=== PATIENT | female | born 1975 | race Caucasian/White ===

== ENCOUNTER 2021-11-28 10:15 | Inpatient (IN) | payer OTHER ==
[2021-11-24 11:24] VITALS: BMI 38.8
[2021-11-28] MEDS ORDERED: BUPIVACAINE LIPOSOME/PF (EXPAREL) 266 MG/20 ML VIAL ONE (12:15)
[2021-11-28] MEDS ORDERED: BUPIVACAINE HCL 50 ML ONE (12:16)
[2021-11-28] MEDS ORDERED: BUPIVACAINE HCL/PF 2.5 MG/ML - 30 ML VIAL IJ ONE (12:16)
[2021-11-28] MEDS ORDERED: MIDAZOLAM HCL 2 MG/2 ML SINGLE DOSE VIAL ONE ×2 (12:16→15:44)
[2021-11-28] MEDS ORDERED: VANCOMYCIN 1,000 MG VIAL (RESTRICTED TO ID ONLY) ONE (12:27)
[2021-11-28] MEDS ORDERED: PROPOFOL 20 ML ONE ×5 (13:50→14:39)
[2021-11-28] MEDS ORDERED: BUPIVICAINE 0.25%/MORPH PF/KETOROLAC - 51ML DISP.SYRINGE IA ONE ×2 (14:39→15:34)
[2021-11-28] MEDS ORDERED: HYDROmorphone HCL/PF 1 MG/ML VIAL ONE (15:55)
[2021-11-28] MEDS ORDERED: MAG HYDROX/AL HYDROX/SIMETH 30 ML UNIT-DOSE CUP PO PRN (16:04)
[2021-11-28] MEDS ORDERED: LACTATED RINGERS SOLUTION 1,000 ML IV SCH (16:15)
[2021-11-28] MEDS ORDERED: HYDROmorphone HCL/PF 1 MG/ML VIAL IVPUSH PRN (16:22)
[2021-11-28] MEDS ORDERED: ACETAMINOPHEN 1000 MG/100 ML BAG IVPB ONE ×2 (16:23→16:40)
[2021-11-28] MEDS ORDERED: oxyCODONE HCL 5 MG TABLET PO PRN (16:23)
[2021-11-28] MEDS ORDERED: ACETAMINOPHEN INJECTION 100 ML IVPB ONE (16:41)
[2021-11-28] MEDS: ONDANSETRON 4 MG/2 ML VIAL IVPUSH PRN (16:55)
[2021-11-28] MEDS ORDERED: ONDANSETRON 4 MG/2 ML VIAL ONE (16:59)
[2021-11-28] MEDS ORDERED: DEXTROSE 5%-WATER - 50 ML IVPB ONE (21:22)
[2021-11-28] MEDS ORDERED: ceFAZolin SODIUM 1 GM VIAL ONE (21:22)
[2021-11-28] MEDS: oxyCODONE HCL 10 MG SUSTAINED ACTING TABLET PO SCH (21:30)
[2021-11-28] MEDS: CEFAZOLIN 2 GM in DEXTROSE 5%-WATER - 50 ML IVPB SCH (21:31)
[2021-11-28] MEDS: SENNOSIDES/DOCUSATE COMBO (SENNA PLUS) TABLET (UD) PO SCH (21:31)
[2021-11-29] MEDS: oxyCODONE HCL 5 MG TABLET PO PRN ×2 (02:56→19:49)
[2021-11-29] MEDS ORDERED: ceFAZolin SODIUM 1 GM VIAL ONE ×2 (03:00→12:24)
[2021-11-29] MEDS ORDERED: DEXTROSE 5%-WATER - 50 ML IVPB ONE ×2 (03:00→12:24)
[2021-11-29] MEDS: CEFAZOLIN 2 GM in DEXTROSE 5%-WATER - 50 ML IVPB SCH ×3 (04:58→12:27)
[2021-11-29] MEDS: ONDANSETRON 4 MG/2 ML VIAL IVPUSH PRN (07:57)
[2021-11-29 08:05] LABS: CALCIUM 8.5 mg/dl (8.5-10); CREATININE 0.8 mg/dl (0.55-1.3)
[2021-11-29] MEDS: GABAPENTIN 300 MG CAPSULE PO SCH ×3 (08:38→21:40)
[2021-11-29] MEDS: ACETAMINOPHEN 500 MG TABLET (FP) PO SCH ×3 (08:51→23:54)
[2021-11-29] MEDS: SENNOSIDES/DOCUSATE COMBO (SENNA PLUS) TABLET (UD) PO SCH ×2 (09:48→21:41)
[2021-11-29] MEDS: oxyCODONE HCL 10 MG SUSTAINED ACTING TABLET PO SCH ×2 (09:48→21:40)
[2021-11-29] MEDS: MULTIVITAMINS (DAILY MVI) TABLET (FP) PO SCH (09:48)
[2021-11-29] MEDS: PANTOPRAZOLE 40 MG TABLET PO SCH (09:48)
[2021-11-29] MEDS: ASPIRIN 325 MG TABLET PO SCH ×2 (09:48→21:40)
[2021-11-29] MEDS: LORATADINE 10 MG TABLET PO SCH (09:52)
[2021-11-29 10:04] LABS: HEMATOCRIT 36.6 % (32.4-45.2); HEMOGLOBIN 12.4 GM/dL (10.7-15.3); MCH 31.1 pg (25.7-33.7); MCHC 33.8 g/dl (32.0-36.0); MEAN CELL VOLUME 92.1 fl (80-96); MEAN PLT VOLUME 8.6 fl (7.5-11.1); PLATELET COUNT 248 10^3/uL (134-434); RBC 3.98 M/mm3 (3.60-5.2); RDW 13.4 % (11.6-15.6); WHITE BLOOD COUNT 9.8 K/mm3 (4.0-10.0)
[2021-11-30] MEDS: ACETAMINOPHEN 500 MG TABLET (FP) PO SCH ×2 (08:28→16:28)
[2021-11-30] MEDS: PANTOPRAZOLE 40 MG TABLET PO SCH (09:24)
[2021-11-30] MEDS: oxyCODONE HCL 10 MG SUSTAINED ACTING TABLET PO SCH (09:24)
[2021-11-30] MEDS: SENNOSIDES/DOCUSATE COMBO (SENNA PLUS) TABLET (UD) PO SCH (09:24)
[2021-11-30] MEDS: ASPIRIN 325 MG TABLET PO SCH (09:24)
[2021-11-30] MEDS: MULTIVITAMINS (DAILY MVI) TABLET (FP) PO SCH (09:24)
[2021-11-30] MEDS: GABAPENTIN 300 MG CAPSULE PO SCH (09:24)
[2021-11-30] MEDS: LORATADINE 10 MG TABLET PO SCH (09:27)
[2021-11-30 13:51] VITALS: BP 100/49; PULSE 92; TEMP 99.6
[2021-11-30 15:28] LABS: HEMATOCRIT 34.9 % (32.4-45.2); HEMOGLOBIN 11.8 GM/dL (10.7-15.3); MCH 31.2 pg (25.7-33.7); MCHC 33.9 g/dl (32.0-36.0); MEAN CELL VOLUME 92.1 fl (80-96); MEAN PLT VOLUME 8.7 fl (7.5-11.1); PLATELET COUNT 220 10^3/uL (134-434); RBC 3.79 M/mm3 (3.60-5.2); RDW 13.5 % (11.6-15.6); WHITE BLOOD COUNT 9.5 K/mm3 (4.0-10.0)
== END 2021-11-30 17:12 | disposition home or self-care (01) | DRG 470 ==
LOC: FM/S 10:38
PROVIDERS: ADMIT Orthopaedic Surgery Sports Medicine; ATTEND Nurse Practitioner Acute Care
PROC: 0SRD0JZ Replacement of Left Knee Joint with Synthetic Substitute, Open Approach (ICD-10-PCS; principal; 2021-11-28 13:42)
DX: M17.12 Unilateral primary osteoarthritis, left knee (principal); F41.8 Other specified anxiety disorders; M79.7 Fibromyalgia
CPT/HCPCS: 36415; 73560-TC-LT-FY; 80048; 84703; 85027; 94760; 97010-GP; 97116-GP; 97162-GP

== ENCOUNTER 2022-11-20 08:57 | Inpatient (IN) | payer OTHER ==
[2022-11-13 11:34] VITALS: BMI 37.5
[2022-11-20] MEDS ORDERED: MIDAZOLAM HCL 2 MG/2 ML SINGLE DOSE VIAL ONE ×5 (09:22→12:53)
[2022-11-20] MEDS ORDERED: PROPOFOL 40 ML ONE (09:22)
[2022-11-20] MEDS ORDERED: BUPIVACAINE LIPOSOME/PF (EXPAREL) 266 MG/20 ML VIAL ONE (09:24)
[2022-11-20] MEDS ORDERED: BUPIVACAINE HCL/PF 0.5% (5MG/ML) 10 ML VIAL ONE (09:24)
[2022-11-20] MEDS ORDERED: VANCOMYCIN 1,000 MG VIAL (RESTRICTED TO ID ONLY) ONE ×2 (10:47→11:13)
[2022-11-20] MEDS ORDERED: CEFAZOLIN 2 GM in DEXTROSE 5%-WATER - 50 ML IVPB ONE (11:00)
[2022-11-20] MEDS ORDERED: VANCOMYCIN 1 GM in D5W (PRE-DOCKED) 1,000 MG/250 ML IVPB ONE ×2 (11:00→22:00)
[2022-11-20] MEDS ORDERED: ONDANSETRON 4 MG/2 ML VIAL ONE (11:13)
[2022-11-20] MEDS ORDERED: DEXAMETHASONE SOD PHOSPHATE 4 MG/1 ML VIAL ONE (11:13)
[2022-11-20] MEDS ORDERED: ceFAZolin SODIUM 1 GM VIAL ONE (11:13)
[2022-11-20] MEDS ORDERED: TRANEXAMIC ACID 1000 MG/10 ML VIAL ONE (11:13)
[2022-11-20] MEDS ORDERED: PROPOFOL 60 ML ONE (11:44)
[2022-11-20] MEDS ORDERED: TRANEXAMIC ACID 1000 MG/10 ML VIAL IVPUSH ONE (12:00)
[2022-11-20] MEDS ORDERED: ePHEDrine SULFATE 50 MG/1 ML AMPULE ONE (12:11)
[2022-11-20] MEDS ORDERED: BUPIVICAINE 0.25%/MORPH PF/KETOROLAC - 51ML DISP.SYRINGE IA ONE (12:37)
[2022-11-20] MEDS ORDERED: PROPOFOL 20 ML ONE ×2 (12:56→13:14)
[2022-11-20] MEDS ORDERED: ACETAMINOPHEN 1000 MG/100 ML BAG IVPB ONE (14:11)
[2022-11-20] MEDS ORDERED: ONDANSETRON 4 MG/2 ML VIAL IVPUSH PRN ×2 (14:11→14:12)
[2022-11-20] MEDS ORDERED: MAG HYDROX/AL HYDROX/SIMETH 30 ML UNIT-DOSE CUP PO PRN (14:12)
[2022-11-20] MEDS ORDERED: LACTATED RINGERS SOLUTION 1,000 ML IV SCH ×2 (14:15)
[2022-11-20] MEDS: KETOROLAC TROMETHAMINE 30 MG/1 ML VIAL IVPUSH SCH ×2 (16:28→21:46)
[2022-11-20] MEDS: ACETAMINOPHEN 500 MG TABLET (FP) PO SCH (20:45)
[2022-11-20] MEDS: CEFAZOLIN SODIUM 2 GM in DEXTROSE 5%-WATER 100 ML IVPB SCH (21:44)
[2022-11-20] MEDS: GABAPENTIN 300 MG CAPSULE PO SCH (21:45)
[2022-11-20] MEDS: SENNOSIDES/DOCUSATE COMBO (SENNA PLUS) TABLET (UD) PO SCH (21:45)
[2022-11-21] MEDS: oxyCODONE HCL 5 MG TABLET PO PRN ×6 (01:51→22:04)
[2022-11-21] MEDS: ACETAMINOPHEN 500 MG TABLET (FP) PO SCH ×4 (02:13→22:18)
[2022-11-21] MEDS: CEFAZOLIN SODIUM 2 GM in DEXTROSE 5%-WATER 100 ML IVPB SCH ×2 (03:42→10:56)
[2022-11-21 08:26] LABS: HEMATOCRIT 34.5 % (32.4-45.2); HEMOGLOBIN 11.5 G/dL (10.7-15.3); MCH 30.4 pg (25.7-33.7); MCHC 33.3 g/dl (32.0-36.0); MEAN CELL VOLUME 91.4 fl (80-96); MEAN PLT VOLUME 8.2 fl (7.5-11.1); RBC 3.78 10^6/uL (3.60-5.2); RDW 14.1 % (11.6-15.6); WHITE BLOOD COUNT 10.1 10^3/uL (4.0-10.8)
[2022-11-21 08:32] LABS: CALCIUM 8.4 mg/dl (8.5-10); CREATININE 0.6 mg/dl (0.55-1.3)
[2022-11-21] MEDS: GABAPENTIN 300 MG CAPSULE PO SCH ×2 (09:15→22:04)
[2022-11-21] MEDS: MULTIVITAMINS (DAILY MVI) TABLET (FP) PO SCH (09:15)
[2022-11-21] MEDS: ASPIRIN 325 MG TABLET PO SCH ×2 (09:15→22:04)
[2022-11-21] MEDS: LORATADINE 10 MG TABLET PO SCH (09:15)
[2022-11-21] MEDS: PANTOPRAZOLE 40 MG TABLET PO SCH (09:15)
[2022-11-21] MEDS: SENNOSIDES/DOCUSATE COMBO (SENNA PLUS) TABLET (UD) PO SCH ×2 (09:15→22:04)
[2022-11-22] MEDS: ACETAMINOPHEN 500 MG TABLET (FP) PO SCH ×4 (06:28→21:16)
[2022-11-22] MEDS: oxyCODONE HCL 5 MG TABLET PO PRN ×4 (06:29→21:17)
[2022-11-22 06:39] LABS: BASO % 0.2 % (0-2.0); EOS % 0.7 % (0-4.5); HEMATOCRIT 33.5 % (32.4-45.2); HEMOGLOBIN 11.5 GM/dL (10.7-15.3); LYMPH % 22.1 % (8-40); MCH 30.9 pg (25.7-33.7); MCHC 34.2 g/dl (32.0-36.0); MEAN CELL VOLUME 90.3 fl (80-96); MEAN PLT VOLUME 8.5 fl (7.5-11.1); MONO % 10.5 % (3.8-10.2); NEUT % 66.5 % (42.8-82.8); PLATELET COUNT 246 10^3/uL (134-434); RBC 3.71 M/mm3 (3.60-5.2); WHITE BLOOD COUNT 11.6 K/mm3 (4.0-10.0)
[2022-11-22 06:55] LABS: BLOOD UREA NITROGEN 8.2 mg/dL (7-18)
[2022-11-22 06:58] LABS: CREATININE 0.6 mg/dL (0.55-1.3)
[2022-11-22] MEDS: SENNOSIDES/DOCUSATE COMBO (SENNA PLUS) TABLET (UD) PO SCH ×2 (09:25→21:16)
[2022-11-22] MEDS: PANTOPRAZOLE 40 MG TABLET PO SCH (09:25)
[2022-11-22] MEDS: LORATADINE 10 MG TABLET PO SCH (09:25)
[2022-11-22] MEDS: GABAPENTIN 300 MG CAPSULE PO SCH ×2 (09:25→21:17)
[2022-11-22] MEDS: MULTIVITAMINS (DAILY MVI) TABLET (FP) PO SCH (09:25)
[2022-11-22] MEDS: ASPIRIN 325 MG TABLET PO SCH ×2 (09:25→21:17)
[2022-11-22 14:25] LABS: URINE APPEARANCE CLEAR; URINE BILIRUBIN NEGATIVE (NEGATIVE); URINE COLOR YELLOW; URINE GLUCOSE (UA) NEGATIVE (NEGATIVE); URINE KETONE NEGATIVE (NEGATIVE); URINE LEUK ESTERASE NEGATIVE (NEGATIVE); URINE NITRITE NEGATIVE (NEGATIVE); URINE PROTEIN NEGATIVE (NEGATIVE); URINE UROBILINOGEN 0.2 mg/dL (0.2-1.0)
[2022-11-23] MEDS: ACETAMINOPHEN 500 MG TABLET (FP) PO SCH ×3 (07:23→16:36)
[2022-11-23] MEDS: oxyCODONE HCL 5 MG TABLET PO PRN ×4 (07:25→17:22)
[2022-11-23 08:34] LABS: CALCIUM 8.5 mg/dl (8.5-10); CREATININE 0.6 mg/dl (0.55-1.3)
[2022-11-23 11:30] LABS: BASO % 0.5 % (0-2.0); EOS % 1.2 % (0-4.5); HEMATOCRIT 35.5 % (32.4-45.2); HEMOGLOBIN 11.6 GM/dL (10.7-15.3); LYMPH % 13.7 % (8-40); MCH 29.8 pg (25.7-33.7); MCHC 32.7 g/dl (32.0-36.0); MEAN CELL VOLUME 91.3 fl (80-96); MEAN PLT VOLUME 8.7 fl (7.5-11.1); MONO % 9.1 % (3.8-10.2); NEUT % 75.5 % (42.8-82.8); PLATELET COUNT 299 10^3/uL (134-434); RBC 3.89 M/mm3 (3.60-5.2); RDW 14.1 % (11.6-15.6); WHITE BLOOD COUNT 12.6 K/mm3 (4.0-10.0)
[2022-11-23] MEDS: LORATADINE 10 MG TABLET PO SCH (11:36)
[2022-11-23] MEDS: SENNOSIDES/DOCUSATE COMBO (SENNA PLUS) TABLET (UD) PO SCH (11:36)
[2022-11-23] MEDS: PANTOPRAZOLE 40 MG TABLET PO SCH (11:36)
[2022-11-23] MEDS: GABAPENTIN 300 MG CAPSULE PO SCH (11:36)
[2022-11-23] MEDS: MULTIVITAMINS (DAILY MVI) TABLET (FP) PO SCH (11:36)
[2022-11-23] MEDS: ASPIRIN 325 MG TABLET PO SCH (11:37)
[2022-11-23 18:14] VITALS: BP 103/56; PULSE 94; RESP 17; TEMP 99.1
== END 2022-11-23 19:00 | disposition home or self-care (01) | DRG 470 ==
LOC: FM/S 08:57 → EDSTATUS 12:00 → FM/S 15:45
PROVIDERS: ADMIT Internal Medicine; ATTEND Internal Medicine
PROC: 8E0Y0CZ Robotic Assisted Procedure of Lower Extremity, Open Approach (ICD-10-PCS; 2022-11-20)
PROC: 0SRC0JZ Replacement of Right Knee Joint with Synthetic Substitute, Open Approach (ICD-10-PCS; principal; 2022-11-20 11:41)
DX: M17.11 Unilateral primary osteoarthritis, right knee (principal)
CPT/HCPCS: 36415; 73560-TC-RT-FY; 80048; 81003; 85025; 85027; 87086; 88305-TC; 88311-TC; 94760; 97010-GP; 97116-GP; 97162-GP; C1776